=== PATIENT | female | born 1970 | race Caucasian/White ===

== ENCOUNTER 2019-06-12 21:18 | Observation (INO) | payer BC ==
[2019-06-12 21:39] LABS: Basophils % 1.1 % (0-1.3); Hematocrit 39.8 % (36.0-45.0); Lymphocytes % 29.1 % (15.3-44.8); MPV 8.8 fL (7.6-11.3)
[2019-06-12 21:42] LABS: Protime INR 0.97
[2019-06-12 21:59] LABS: ALT/SGPT 39 U/L (12-78); AST/SGOT 25 U/L (15-37); Albumin 3.5 g/dL (3.4-5.0); Alkaline Phosphatase 96 U/L (45-117); BUN Blood Urea Nitrogen 15 mg/dL (7-18); Bicarbonate 23 mmol/L (21-32); Bilirubin Direct < 0.1 mg/dL (0-0.2); Bilirubin Total 0.3 mg/dL (0.2-1.0); Glucose Level 136 mg/dL (74-106); Magnesium 2.2 mg/dL (1.8-2.4); NT PRO-BNP 12 pg/mL (<125); Potassium 3.8 mmol/L (3.5-5.1); Protein, Total 7.8 g/dL (6.4-8.2); Sodium Level 143 mmol/L (136-145); Troponin (Emerg Dept Use Only) < 0.02 ng/mL (0.0-0.045)
--- NOTE | 2019-06-12 23:08 | EDPHYS ---
Physician Documentation [facility] Name: Piper Munguia Age: 48 yrs Sex: Female : 1970 Arrival Date: 06/12/2019 Time: 21:20 Bed 17 Private MD: ED Physician Clem Lopez HPI: 06/12 23:03 This 48 yrs old Female presents to ER via EMS with complaints of Chest tw4 Tightness. 23:03 The patient has experienced near-syncope. Onset: The symptoms/episode began/occurred tw4 just prior to arrival. Duration: This was a single episode, that lasted 5 second(s). Context: the episode(s) was witnessed, by a friend. Associated injury: The patient did not suffer any apparent associated injury. Associated signs and symptoms: The patient has no apparent associated signs or symptoms. The patient has not experienced similar symptoms in the past. 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 - Social history:: Smoking status: Patient/guardian denies using tobacco, Patient/guardian denies using alcohol, street drugs. - Ebola Screening: : Patient negative for fever greater than or equal to 101.5 degrees Fahrenheit, and additional compatible Ebola Virus Disease symptoms Patient denies exposure to infectious person Patient denies travel to an Ebola-affected area in the 21 days before illness onset. ROS: 23:03 Neuro: Positive for syncope. tw4 23:03 Constitutional: Negative for fever, chills, and weight loss, Neck: Negative for injury, tw4 pain, and swelling, Respiratory: Negative for shortness of breath, cough, wheezing, and pleuritic chest pain, Abdomen/GI: Negative for abdominal pain, nausea, vomiting, diarrhea, and constipation, Back: Negative for injury and pain, MS/Extremity: Negative for injury and deformity, Skin: Negative for injury, rash, and discoloration. 23:03 Cardiovascular: Positive for chest pain, Negative for edema, orthopnea, palpitations. Exam: 23:03 Constitutional: This is a well developed, well nourished patient who is awake, alert, tw4 and in no acute distress. 23:03 Head/Face: Normocephalic, atraumatic. Eyes: Pupils equal round and reactive to light, tw4 extra-ocular motions intact. Lids and lashes normal. Conjunctiva and sclera are non-icteric and not injected. Cornea within normal limits. Periorbital areas with no swelling, redness, or edema. Chest/axilla: Normal chest wall appearance and motion. Nontender with no deformity. No lesions are appreciated. Cardiovascular: Regular rate and rhythm with a normal S1 and S2. No gallops, murmurs, or rubs. Normal PMI, no JVD. No pulse deficits. Respiratory: Lungs have equal breath sounds bilaterally, clear to auscultation and percussion. No rales, rhonchi or wheezes noted. No increased work of breathing, no retractions or nasal flaring. Abdomen/GI: Soft, non-tender, with normal bowel sounds. No distension or tympany. No guarding or rebound. No evidence of tenderness throughout. Skin: Warm, dry with normal turgor. Normal color with no rashes, no lesions, and no evidence of cellulitis. MS/ Extremity: Pulses equal, no cyanosis. Neurovascular intact. Full, normal range of motion. Neuro: Awake and alert, GCS 15, oriented to person, place, time, and situation. Cranial nerves II-XII grossly intact. Motor strength 5/5 in all extremities. Sensory grossly intact. Cerebellar exam normal. Normal gait. Vital Signs: 21:12 BP 127 / 75; Pulse 108; Resp 20; Temp 97.9; Pulse Ox 100% on R/A; Weight 122.47 kg (R); fc Height 5 ft. 5 in. (165.10 cm) (R); Pain 0/10; 22:05 BP 94 / 55; Pulse 92; Resp 18; Pulse Ox 100% on R/A; ea 22:49 BP 100 / 61; Pulse 90; Resp 18; Pulse Ox 97% on R/A; ea 23:35 BP 117 / 71; Pulse 87; Resp 18; Pulse Ox 100% on R/A; rr5 06/13 00:50 BP 107 / 59; Pulse 84; Resp 17; Pulse Ox 99% ; rr5 01:32 BP 105 / 59; Pulse 82; Resp 17; Temp 98.1; Pulse Ox 99% ; rr5 06/12 21:12 Body Mass Index 44.93 (122.47 kg, 165.10 cm) fc MDM: 06/12 21:25 Patient medically screened. tw4 23:03 Differential Diagnosis: cardiac arrhythmia, idiopathic syncope, pseudo seizure, tw4 transient ischemic attack, vasovagal episode. Data reviewed: vital signs, nurses notes. Data interpreted: Pulse oximetry: Interpretation: normal. Counseling: I had a detailed discussion with the patient and/or guardian regarding: the historical points, exam findings, and any diagnostic results supporting the discharge/admit diagnosis, lab results, radiology results. 06/12 21:26 Order name: Basic Metabolic Panel; Complete Time: 23:01 [facility] 06/12 23:01 Interpretation: Normal except: CL 109; GLUC 136; CRE 1.41; GFR 39. 06/12 21:26 Order name: CBC with Diff; Complete Time: 23:01 [facility] 06/12 23:01 Interpretation: Normal except: MCV 86.4. 06/12 21:26 Order name: LFT's; Complete Time: 23:01 06/12 23:01 Interpretation: Normal except: GLOB 4.3; A/G 0.8. 06/12 21:26 Order name: Magnesium; Complete Time: 23:01 06/12 23:02 Interpretation: Within normal limits: MG 2.2. 06/12 21:26 Order name: NT PRO-BNP; Complete Time: 23:01 [facility] 06/12 23:02 Interpretation: Within normal limits: NT PRO-BNP 12. 06/12 21:26 Order name: PT-INR; Complete Time: 23:01 06/12 23:02 Interpretation: Within normal limits: PT 11.5. 06/12 21:26 Order name: Troponin (emerg Dept Use Only); Complete Time: 23:01 06/12 23:02 Interpretation: Within normal limits: TROPED < 0.02. 06/12 21:26 Order name: XRAY Chest (1 view) 06/12 21:26 Order name: EKG; Complete Time: 21:28 06/12 21:26 Order name: Cardiac monitoring; Complete Time: 21:39 06/12 21:26 Order name: EKG - Nurse/Tech; Complete Time: 21:39 06/12 21:26 Order name: IV Saline Lock; Complete Time: 21:45 06/12 21:26 Order name: CT Chest For PE Angio 06/12 23:26 Order name: CT Head Brain wo Cont 06/12 21:26 Order name: Labs collected and sent; Complete Time: :45 06/12 21:26 Order name: O2 Per Protocol; Complete Time: 21:39 06/12 21:26 Order name: O2 Sat Monitoring; Complete Time: 21:39 tw4 EC:49 Rate is 98 beats/min. Rhythm is regular. QRS [place] is Normal. MN interval is normal. QRS tw4 interval is normal. QT interval is normal. No Q waves. T waves are Normal. No ST changes noted. Clinical impression: Normal ECG. Interpreted by me. Reviewed by me. Administered Medications: No medications were administered Disposition: 06/12/19 23:07 Hospitalization ordered by Parmjit Webber for Observation. Preliminary diagnosis is Syncope and collapse. - Bed requested for Telemetry/MedSurg (observation). - Status is Observation. rr5 - Condition is Stable. - Problem is new. - Symptoms have improved. UTI on Admission? No Signatures: Dispatcher [employer] EDMS Chyna Petersen RN RN Olga Gutierres RN RN fc Wadley, Terrence, MD MD tw4 Carlito Lucas RN RN rr5 Corrections: (The following items were deleted from the chart) 23:05 23:03 Constitutional: Negative for fever, chills, and weight loss, Eyes: Negative for tw4 injury, pain, redness, and discharge, Cardiovascular: Negative for chest pain, palpitations, and edema, Respiratory: Negative for shortness of breath, cough, wheezing, and pleuritic chest pain, Abdomen/GI: Negative for abdominal pain, nausea, vomiting, diarrhea, and constipation, Back: Negative for injury and pain, MS/Extremity: Negative for injury and deformity, Skin: Negative for injury, rash, and discoloration, tw4 06/13 01:06/12 23:07 Hospitalization Ordered by Parmjit Webber MD for Observation. Preliminary mw diagnosis is Syncope and collapse. Bed requested for Telemetry/MedSurg (observation). Status is Observation. Condition is Stable. Problem is new. Symptoms have improved. UTI on Admission? No. tw4 06/13 01:45 :06/12/2019 23:07 Hospitalization Ordered by Parmjit Webber MD for Observation. rr5 Preliminary diagnosis is Syncope and collapse. Bed requested for Telemetry/MedSurg (observation). Status is Observation. Condition is Stable. Problem is new. Symptoms have improved. UTI on Admission? No. mw
--- NOTE | 2019-06-12 23:08 | ER ---
Nurse's Notes [facility] Name: Piper Munguia Age: 48 yrs Sex: Female : 1970 Arrival Date: 06/12/2019 Time: 21:20 Bed 17 Private MD: Diagnosis: Syncope and collapse Presentation: 06/12 21:12 Presenting complaint: EMS states: that pt had chest tightness the got hot and had a fc syncopal episode. Prior to their arrival they were told pt was cold, clammy, pale and unresponsive. Upon their arrival pt was cool, pale, awake, alert and oriented x4. Transition of care: patient was not received from another setting of care. Onset of symptoms was June 12, 2019. Risk Assessment: Do you want to hurt yourself or someone else? Patient reports no desire to harm self or others. Initial Sepsis Screen: Does the patient meet any 2 criteria? HR > 90 bpm. Yes Does the patient have a suspected source of infection? No. Patient's initial sepsis screen is negative. Care prior to arrival: Medication(s) given: Normal saline infusion, 300 ml IV initiated. 20 GA, in the right forearm, Glucose check: 117. 21:12 Method Of Arrival: EMS: [facility] 21:12 Acuity: NIKA 3 Triage Assessment: 21:33 General: Appears in no apparent distress. Behavior is appropriate for age. Pain: ea Complains of pain in chest. Cardiovascular: Patient's skin is warm and dry. 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 - Social history:: Smoking status: Patient/guardian denies using tobacco, Patient/guardian denies using alcohol, street drugs. - Ebola Screening: : Patient negative for fever greater than or equal to 101.5 degrees Fahrenheit, and additional compatible Ebola Virus Disease symptoms Patient denies exposure to infectious person Patient denies travel to an Ebola-affected area in the 21 days before illness onset. Screenin:12 Abuse screen: Denies threats or abuse. Nutritional screening: No deficits noted. fc Tuberculosis screening: No symptoms or risk factors identified. Fall Risk None identified. Assessment: 21:34 General: Appears in no apparent distress. Behavior is calm, cooperative, appropriate ea for age. Pain: Complains of pain in chest Pain does not radiate. Pain began suddenly. Neuro: Level of Consciousness is awake, alert, obeys commands, Oriented to person, place, time, situation. Cardiovascular: Patient's skin is warm and dry. Respiratory: Airway is patent Respiratory effort is even, unlabored, Respiratory pattern is regular, symmetrical. Derm: Skin is pink, warm \T\ dry. 22:06 Reassessment: Patient and/or family updated on plan of care and expected duration. Pain ea level reassessed. Patient is alert, oriented x 3, equal unlabored respirations, skin warm/dry/pink. 22:36 Reassessment: Patient and/or family updated on plan of care and expected duration. Pain ea level reassessed. Patient is alert, oriented x 3, equal unlabored respirations, skin warm/dry/pink. Returned from CT. 23:55 Reassessment: Patient appears in no apparent distress at this time. Patient and/or rr5 family updated on plan of care and expected duration. Pain level reassessed. Patient is alert, oriented x 3, equal unlabored respirations, skin warm/dry/pink. went back from CT of head. no complaints made. 06/13 00:40 Reassessment: Patient appears in no apparent distress at this time. Patient and/or rr5 family updated on plan of care and expected duration. Pain level reassessed. Patient is alert, oriented x 3, equal unlabored respirations, skin warm/dry/pink. Patient denies pain at this time. Patient states feeling better. Patient states symptoms have improved. 00:50 Reassessment: follow up to hospitalist thru phone, awaiting for the in patient orders. rr5 Vital Signs: 06/12 21:12 BP 127 / 75; Pulse 108; Resp 20; Temp 97.9; Pulse Ox 100% on R/A; Weight 122.47 kg (R); fc Height 5 ft. 5 in. (165.10 cm) (R); Pain 0/10; 22:05 BP 94 / 55; Pulse 92; Resp 18; Pulse Ox 100% on R/A; ea 22:49 BP 100 / 61; Pulse 90; Resp 18; Pulse Ox 97% on R/A; ea 23:35 BP 117 / 71; Pulse 87; Resp 18; Pulse Ox 100% on R/A; rr5 06/13 00:50 BP 107 / 59; Pulse 84; Resp 17; Pulse Ox 99% ; rr5 01:32 BP 105 / 59; Pulse 82; Resp 17; Temp 98.1; Pulse Ox 99% ; rr5 06/12 21:12 Body Mass Index 44.93 (122.47 kg, 165.10 cm) fc ED Course: 06/12 21:12 Arm band placed on Patient placed in an exam room, on a stretcher. fc 21:12 Patient has correct armband on for positive identification. Placed in gown. Bed in low fc position. Call light in reach. Side rails up X2. shelter monitor on. Pulse ox on. NIBP on. 21:12 No provider procedures requiring assistance completed. Maintain EMS IV. Dressing fc intact. Good blood return noted. Site clean \T\ dry. Gauge \T\ site: 20 gauge to right forearm. 21:20 Patient arrived in ED. rv 21:25 Triage completed. fc 21:25 Clem Lopez MD is Attending Physician. tw4 21:31 Radiology exam delayed due to lab results not completed at this time. (BUN/Creatinine). mw3 21:33 Vera Pinto, ANGEL is Primary Nurse. ea 21:34 Inserted saline lock: 20 gauge in right antecubital area, using aseptic technique. ea Blood collected. Patient maintains SpO2 saturation greater than 95% on room air. 21:37 XRAY Chest (1 view) In Process Unspecified. EDMS 22:41 CT Chest For PE Angio In Process Unspecified. EDMS 23:07 Parmjit Webber MD is Hospitalizing Provider. tw4 23:53 CT Head Brain wo Cont In Process Unspecified. EDMS 06/13 01:32 Patient admitted, IV remains in place. intact, No redness/swelling at site. rr5 Administered Medications: No medications were administered Outcome: 06/12 23:07 Decision to Hospitalize by Provider. tw4 06/13 01:31 Admitted to Tele accompanied by tech, room 424, with chart, Report called to montserrat rr5 Condition: stable Instructed on the need for admit. 01:45 Patient left the ED. rr5 Signatures: Dispatcher [employer] EDMS Olga Gutierres, RN RN Vera Pinto RN RN Clem Romero MD MD tw4 Margarita Arredondo 3 Josue Broussard, RN RN Carlito Lucas, RN RN rr5
[2019-06-13] MEDS ORDERED: ACETAMINOPHEN 500 MG TAB PO PRN (01:04)
[2019-06-13] MEDS ORDERED: ALPRAZOLAM 0.25 MG TABLET PO PRN (01:04)
[2019-06-13 02:20] VITALS: BMI 47.2
[2019-06-13 06:53] LABS: HDL Cholesterol 31 mg/dL (40-60); LDL Cholesterol, Calculated 50 (<130); Troponin I < 0.02 ng/mL (0.0-0.045)
[2019-06-13] MEDS ORDERED: D50W 25 GM/50 ML SYRINGE IV PRN (07:07)
[2019-06-13] MEDS ORDERED: GLUCAGON 1 MG/VIAL IM PRN (07:07)
--- NOTE | 2019-06-13 07:18 | P.HP ---
Certification for Inpatient Patient admitted to: Observation With expected LOS: <2 Midnights Patient will require the following post-hospital care: None Practitioner: I am a practitioner with admitting privileges, knowledge of patient current condition, hospital course, and medical plan of care. Services: Services provided to patient in accordance with Admission requirements found in Title 42 Section 412.3 of the Code of Federal Regulations Patient History Date of Service: 06/13/19 Reason for admission: Near syncope History of Present Illness: Patient is a 48-year-old female who has a history of hypertension and a questionable prior history of a myocardial infarction. She presents to the hospital after having a syncopal event. She was at a birthday republican when she became lightheaded. She had been outside for 10-15 min. She was taking pictures in around then she started feeling faint. She collapsed but did not lose consciousness according to the family. She came around within a couple of min. When EMS arrived her blood pressure was 70s over 50s. By the time she was brought to the emergency room she was asymptomatic and her blood pressure had improved. At this time, she is feeling much better. She will be admitted to the hospital for further evaluation. She denies any shortness of breath. She did have diaphoresis. Concern for angina equivalent symptoms of this syncope. Patient has numerous risk factors including her prior history of hypertension and a questionable myocardial infarction. She also smokes, but she quit in July. She smoked for 23 years, and she has a 23 pack-year smoking history. She also has a family history of Coronary artery disease with a mother who had heart disease starting at the age of 50. Will get Cardiology evaluation in light of her numerous risk factors. Allergies No Known Allergies Allergy (Unverified 06/13/19 01:21) Home Medications: Allopurinol 100 mg PO DAILY 06/13/19 Irbesartan/Hydrochlorothiazide [Avalide 300-12.5 mg Tablet] 1 tab PO DAILY 6PM 06/13/19 Metformin HCl 1,000 mg PO DAILY 6PM 06/13/19 Simvastatin 10 mg PO DAILY 6PM 06/13/19 - Past Medical/Surgical History Has patient received pneumonia vaccine in the past: No Diabetic: Yes -: NIDDM -: HTN -: HLD -: Gout -: [place] 1990s -: Breast Augmentation -: Tubal Ligation -: C Section -: L foot Sx -: L Cataract Removal - Social History Smoking Status: Current some day smoker Alcohol use: Yes CD- Drugs: No Caffeine use: Yes Place of Residence: Home Review of Systems 10-point ROS is otherwise unremarkable Physical Examination - Vital Signs Temperature: 98.0 F Blood Pressure: 116/72 Pulse: 83 Respirations: 18 Pulse Ox (%): 100 - Physical Exam General: Alert, In no apparent distress, Oriented x3 HEENT: Atraumatic, PERRLA, Mucous membr. moist/pink, EOMI, Sclerae nonicteric Neck: Supple, 2+ carotid pulse no bruit, No LAD, Without JVD or thyroid abnormality Respiratory: Clear to auscultation bilaterally, Normal air movement Cardiovascular: Regular rate/rhythm, Normal S1 S2, No murmurs Gastrointestinal: Normal bowel sounds, Soft and benign, Non-distended, No tenderness Musculoskeletal: No clubbing, No swelling, No tenderness Integumentary: No rashes, Tenderness/swelling Neurological: Normal gait, Normal speech, Normal strength at 5/5 x4 extr, Normal tone, Sensation intact, Cranial nerves 3-12 intact, Normal affect Lymphatics: No axilla or inguinal lymphadenopathy - Studies Laboratory Data (last 24 hrs) 06/12/19 21:30: PT 11.5, INR 0.97 06/12/19 21:30: WBC 10.2, Hgb 13.1, Hct 39.8, Plt Count 332 06/12/19 21:30: Sodium 143, Potassium 3.8, BUN 15, Creatinine 1.41 H, Glucose 136 H, Magnesium 2.2, Total Bilirubin 0.3, AST 25, ALT 39, Alkaline Phosphatase 96 Assessment & Plan - Problems (Diagnosis) (1) Near syncope Current Visit: Yes Status: Acute (2) Coronary artery disease Current Visit: Yes Status: Acute (3) Family history of cardiac disorder in mother Current Visit: Yes Status: Acute (4) Hypotension Current Visit: Yes Status: Acute (5) History of hypertension Current Visit: Yes Status: Acute (6) Anginal equivalent Current Visit: Yes Status: Acute - Plan 1. Serial troponins and EKG 2. Cardiology consultation 3. Patient may need echocardiogram and stress test; await Cardiology recommendations 4. Anti-platelet therapy, anti coagulation, beta-clark, statin, and O2 as needed 5. Monitor on telemetry 6. Lipid profile 7. GI and DVT prophylaxis Discharge Plan: Home Plan to discharge in: 48 Hours - Advance Directives Does patient have a Living Will: No Does patient have a Durable POA for Healthcare: No - Code Status/Comfort Care Code Status Assessed: Yes Code Status: Full Code Critical Care: No Time Spent Managing PTS Care (In Minutes): 40
[2019-06-13] MEDS ORDERED: INSULIN -REGULAR HUMAN 50 UNIT/0.5 ML ML SQ SCH (07:30)
[2019-06-13 07:54] LABS: Thyroid Stimulating Hormone 0.494 uIU/mL (0.360-3.740)
[2019-06-13] MEDS ORDERED: NA CHLORIDE 0.9% 500 ML IV ONE (08:39)
--- NOTE | 2019-06-13 08:54 | RAD REPORT ---
EXAM DESCRIPTION: Terrence Single View06/12/2019 9:37 pm CLINICAL HISTORY: Chest pain FINDINGS: The lungs appear clear of acute infiltrate. The heart is normal size. An opacity overlyin g the inferior heart is shown to represent prominent fat on the CT scan same date IMPRESSION: No acute abnormalities displayed
[2019-06-13] MEDS ORDERED: ENOXAPARIN 40 MG/0.4 ML SQ SCH (09:00)
[2019-06-13] MEDS ORDERED: ASPIRIN EC 81 MG TAB PO SCH (09:00)
[2019-06-13] MEDS ORDERED: ALLOPURINOL 100 MG TAB PO SCH (09:00)
[2019-06-13 10:22] VITALS: BP 97/62; TEMP 97.3
[2019-06-13 10:24] LABS: Potassium 4.1 mmol/L (3.5-5.1)
--- NOTE | 2019-06-13 11:31 | P.DS ---
Admission Date: 06/13/19 Discharge Date: 06/13/19 Primary Care Provider: Dr. Wu Disposition: ROUTINE DISCHARGE Discharge Condition: GOOD Reason for Admission: Near syncope Consultations: Cardiology-Dr. Silverio Procedures: CT head: No acute abnormality noted. CT Chest: No acute abnormality, pulmonary embolism or pneumonia noted. CXR: No acute abnormality noted. Medical Problem List: Presyncope, chest pain and shortness of breath with hypotension secondary to dehydration/medication Acute renal injury secondary to dehydration Hypertension Diabetes mellitus type 2 non-insulin dependent Gout Hyperlipidemia Obesity, BMI 47 with possible underlying obstructive sleep apnea Brief History of Present Illness: 48-year-old female with history of hypertension, diabetes presented to the ER with presyncope. Patient reported lightheadedness. She appeared to have fainted. She collapsed but did not lose consciousness as per family. She came around after couple of min. When EMS arrived blood pressures were in the 70s systolic. In the ER blood pressure improved. Patient was given IV fluids. Patient had some chest pain which shortness of breath. CT head, CT chest unremarkable. Patient was the for further evaluation. Hospital Course: Patient presented with presyncope, chest pain and shortness of breath. Patient was also hypotensive. This is all likely related to dehydration. Patient had been working outside over the last day. Patient has been taking her blood pressure medication. Yesterday patient had presyncope without losing consciousness. Blood pressures were initially low. Patient given IV fluids and admitted for further evaluation. Since that time CT head, CT chest unremarkable. Cardiac enzymes unremarkable. Renal function was compromised due to dehydration but has improved. Patient continued with IV fluids in the hospital. Patient seen and evaluated by Cardiology. Cardiology recommends no further inpatient evaluation. Repeat orthostatics now within normal range. Blood pressure now stable at this time. At discharge she is without any significant chest pain or shortness of breath. Patient back to baseline. At discharge she may continue with her home medication. She is to monitor blood pressures closely. If blood pressure less than 110 systolic she is to hold her blood pressure medication. Recommend to follow up with Cardiology this week to follow up this hospitalization. Cardiology plans for outpatient echocardiogram/ cardiac stress test. Patient with acute renal injury. Creatinine abnormal likely from dehydration. Patient received IV fluids. Repeat lab shows improvement. Encourage oral intake at this time. Recommend to follow up with her PCP this week to repeat lab. Recommend no use of nonsteroidal anti-inflammatories. Future medications may need to be renally dose. Patient with hypertension. Blood pressure now stable at this time. Patient may continue with irbesartan/hydrochlorothiazide 300/12.5 mg daily. As recommended above. Patient to monitor her blood pressures daily. She is to hold her medication if blood pressure less than 110 systolic. Further adjustment in medication can be done by her PCP. Patient with diabetes mellitus type 2 non insulin dependent. This has remained stable. At discharge patient will continue with metformin 1000 mg daily. Recommend to maintain blood sugars less 140 fasting and less than 200 after meals. Further adjustment can be done by her PCP. Patient with hyperlipidemia. At discharge she may continue with her medication Zocor 10 mg daily. Patient with gout. Patient will continue with allopurinol 100 mg daily. Patient with obesity, BMI 47. Patient may have underlying obstructive sleep apnea. Will recommend sleep study to be done as an outpatient. Continue with lifestyle modification education. Vital Signs/Physical Exam: Temp Pulse Resp BP Pulse Ox 97.3 F 76 18 97/62 97 06/13/19 08:00 06/13/19 08:00 06/13/19 08:00 06/13/19 08:00 06/13/19 08:00 General: Alert, In no apparent distress, Oriented x3, Cooperative HEENT: Atraumatic Neck: Supple Respiratory: Clear to auscultation bilaterally, Normal air movement Cardiovascular: Normal pulses, Regular rate/rhythm Gastrointestinal: Normal bowel sounds, Soft and benign, Non-distended, No tenderness, No masses, No rebound, No guarding Musculoskeletal: No erythema, No tenderness, No warmth Integumentary: No tenderness/swelling, No erythema, No warmth, No cyanosis Neurological: Normal speech, Normal strength at 5/5 x4 extr, Normal tone, Normal affect Laboratory Data at Discharge: WBC 10.2 K/uL (4.3-10.9) 06/12/19 21:30 Hgb 13.1 g/dL (12.0-15.0) 06/12/19 21:30 Hct 39.8 % (36.0-45.0) 06/12/19 21:30 Plt Count 332 K/uL (152-406) 06/12/19 21:30 PT 11.5 SECONDS (9.5-12.5) 06/12/19 21:30 INR 0.97 06/12/19 21:30 Sodium 144 mmol/L (136-145) 06/13/19 09:39 Potassium 4.1 mmol/L (3.5-5.1) 06/13/19 09:39 BUN 14 mg/dL (7-18) 06/13/19 09:39 Creatinine 0.97 mg/dL (0.55-1.3) 06/13/19 09:39 Glucose 110 mg/dL (74-106) H 06/13/19 09:39 Magnesium 2.2 mg/dL (1.8-2.4) 06/12/19 21:30 Total Bilirubin 0.3 mg/dL (0.2-1.0) 06/12/19 21:30 AST 25 U/L (15-37) 06/12/19 21:30 ALT 39 U/L (12-78) 06/12/19 21:30 Alkaline Phosphatase 96 U/L (45-117) 06/12/19 21:30 Troponin I < 0.02 ng/mL (0.0-0.045) 06/13/19 06:06 Triglycerides 85 mg/dL (<150) 06/13/19 06:06 Cholesterol 98 mg/dL (<200) 06/13/19 06:06 HDL Cholesterol 31 mg/dL (40-60) L 06/13/19 06:06 Cholesterol/HDL Ratio 3.16 06/13/19 06:06 Home Medications: Allopurinol 100 mg PO DAILY 06/13/19 Irbesartan/Hydrochlorothiazide [Avalide 300-12.5 mg Tablet] 1 tab PO DAILY 6PM 06/13/19 Metformin HCl 1,000 mg PO DAILY 6PM 06/13/19 Simvastatin 10 mg PO DAILY 6PM 06/13/19 Patient Discharge Instructions: 1. Recommend follow up with PCP this week to follow up this hospitalization. 2. Patient presented with presyncope, chest pain and shortness of breath. Patient was also hypotensive. This is all likely related to dehydration. Patient had been working outside over the last day. Patient has been taking her blood pressure medication. Yesterday patient had presyncope without losing consciousness. Blood pressures were initially low. Patient given IV fluids and admitted for further evaluation. Since that time CT head, CT chest unremarkable. Cardiac enzymes unremarkable. Renal function was compromised due to dehydration but has improved. Patient continued with IV fluids in the hospital. Patient seen and evaluated by Cardiology. Cardiology recommends no further inpatient evaluation. Repeat orthostatics now within normal range. Blood pressure now stable at this time. At discharge she is without any significant chest pain or shortness of breath. Patient back to baseline. At discharge she may continue with her home medication. She is to monitor blood pressures closely. If blood pressure less than 110 systolic she is to hold her blood pressure medication. Recommend to follow up with Cardiology this week to follow up this hospitalization. Cardiology plans for outpatient echocardiogram/cardiac stress test. 3. Patient with acute renal injury. Creatinine abnormal likely from dehydration. Patient received IV fluids. Repeat lab shows improvement. Encourage oral intake at this time. Recommend to follow up with her PCP this week to repeat lab. Recommend no use of nonsteroidal anti-inflammatories. Future medications may need to be renally dose. 4. Patient with hypertension. Blood pressure now stable at this time. Patient may continue with irbesartan/ hydrochlorothiazide 300/12.5 mg daily. As recommended above. Patient to monitor her blood pressures daily. She is to hold her medication if blood pressure less than 110 systolic. Further adjustment in medication can be done by her PCP. 5. Patient with diabetes mellitus type 2 non insulin dependent. This has remained stable. At discharge patient will continue with metformin 1000 mg daily. Recommend to maintain blood sugars less 140 fasting and less than 200 after meals. Further adjustment can be done by her PCP. 6. Patient with hyperlipidemia. At discharge she may continue with her medication Zocor 10 mg daily. 7. Patient with gout. Patient will continue with allopurinol 100 mg daily. 8. Patient with obesity, BMI 47. Patient may have underlying obstructive sleep apnea. Will recommend sleep study to be done as an outpatient. Continue with lifestyle modification education. Diet: ADA Activity: Ad kerrie Time spent managing pt's care (in minutes): 55
[2019-06-13] MEDS ORDERED: PNEUMOCOCCAL VACCINE 0.5 ML IMVAC ONE (12:00)
[2019-06-13 12:42] VITALS: O2SAT 96
--- NOTE | 2019-06-13 13:14 | CON ---
Date of Consultation: 06/13/[address] Martin on 06/13/2019. I saw the patient on 06/13/2019. Reason For Consultation: Syncope. History Of Present Illness: Ms. Munguia is a 48-year-old white woman without any previous cardiac histor y. She has a history of hypertension, gout, diabetes, and dyslipidemia. Approximately 2 days ago, s he was working outside on her truck and got very sweaty. The day after while outside, she had an epi sode of presyncope that lasted about few seconds. She denied any chest pain. Denied any nausea or v omiting or diaphoresis. Denied any PND, orthopnea, pedal edema, or palpitations. Few years ago, she was told she had a very mild heart attack, but never had a heart catheterization or any workup at at point. She has never really had a stress test. She does have a family history of heart disease. So far, her EKG is nonspecific. The rest of the blood work showed a creatinine of 1.41. Past Medical History: As stated above. Allergies: NONE. Review of Systems: Negative. Social History: Negative for tobacco or alcohol use. Family History: Positive for heart disease. Medications: At home include allopurinol, Avalide, metformin, and Zocor. Physical Examination: General: She weighed 284 pounds, but the vital signs were stable. She was afebrile. She was in a s inus rhythm. HEENT: Negative. Neck: Supple without any bruit. Chest: Clear to auscultation and percussion. Cardiac: Revealed a regular rhythm and rate. No murmurs, gallops, or rubs. Abdomen: Benign. Extremities: Revealed no clubbing, cyanosis, or edema. Diagnostic Data: As stated earlier. Impression And Plan: 1.Syncope secondary to orthostatic hypotension, secondary to dehydration. 2.Elevated creatinine consistent with dehydration. 3.Obesity. 4.Gout. 5.Diabetes. 6.Hypertension. 7.Dyslipidemia. I believe Ms. Munguia can go home, stay well hydrated. Continue her medical regimen. I would make arran gements for her to have an outpatient stress test with [facility] and I would have repeat her creatin ine in the near future. Case was discussed with Dr. Martin. SHAILA/PASTOR Voice ID: [id number] Report ID: [id number]
--- NOTE | 2019-06-13 16:57 | EKG ---
Test Date: 2019-06-12 Test Time: 21:18:14 Complaint Specialist: SHIRLEY MEASUREMENT RESULTS: Intervals: Rate: 98 MN: 152 QRSD: 76 QT: 362 QTc: 462 Adel: P: 10 MN: 152 QRS: 49 T: 46 INTERPRETIVE STATEMENTS: Normal sinus rhythm Normal ECG Compared to ECG 02/10/2013 13:42:40 No significant changes Electronically Signed On 06-13-19 16:56:01 CDT by Dylon Silverio
[2019-06-13] MEDS ORDERED: HOME MED 1 EA UNK (Simvastatin [Simvastatin] 10 MG) PO SCH (18:00)
[2019-06-13] MEDS ORDERED: ATORVASTATIN 10 MG TAB PO SCH (21:00)
--- NOTE | 2019-06-14 09:43 | RAD REPORT ---
EXAM DESCRIPTION: CT - Head Brain Wo Cont - 06/13/2019 12:54 am CLINICAL HISTORY: The patient is 48 years old and is Female; SYNCOPE TECHNIQUE: Axial computed tomography images of the head/brain without intravenous contrast. Sagitt al and coronal reformatted images were created and reviewed. This CT exam was performed using one o r more of the following dose reduction techniques: automated exposure control, adjustment of the mA and/or kV according to patient size, and/or use of iterative reconstruction technique. COMPARISON: No relevant prior studies available. FINDINGS: BRAIN: Unremarkable. The turcios-white matter differentiation is preserved . No hemorrhag e. No significant white matter disease. No edema. No extra-axial fluid collections. VENTRICLES: Unremarkable. No ventriculomegaly. BONES/JOINTS: No acute fracture. SOFT TISSUES: Unremarkable. SINUSES: Unremarkable as visualized. No acute sinusitis. MASTOID AIR CELLS: Unremarkable as visualized. No mastoid effusion. IMPRESSION: No acute intracranial findings. Electronically signed by: Wanda Pham MD 06/13/2019 12:02 AM CDT Due to temporary technical issues with the PACS/Fluency reporting system, reports are being signed by the in house radiologist as a courtesy to ensure prompt reporting. The interpreting radiologist is f ully responsible for the content of the report.
--- NOTE | 2019-06-14 09:44 | RAD REPORT ---
EXAM DESCRIPTION: CT - Chest For Pe Angio - 06/12/2019 10:40 pm CLINICAL HISTORY: Shortness of breath. COMPARISON: None. TECHNIQUE: CT angiogram of the chest with IV contrast. 3-D MIP images were obtained in coronal and s agittal reconstructions. This exam was performed according to our departmental dose-optimization prog bishop, which includes automated exposure control, adjustment of the mA and/or kV according to patient s ize and/or use of iterative reconstruction technique. FINDINGS: No filling defects are identified in the pulmonary trunk, main left and right pulmonary ar teries, or the segmental branches. No mediastinal or hilar adenopathy. The heart size is normal without pericardial effusion. The thorac ic aorta is normal caliber. No consolidation, pleural effusion, or pneumothorax is identified. The visualized upper abdomen demonstrates no acute findings. No acute osseous findings are seen. IMPRESSION: No acute pulmonary embolism. Electronically signed by: Marlon Sutton MD 06/12/2019 10:48 PM CDT Due to temporary technical issues with the PACS/Fluency reporting system, reports are being signed by the in house radiologist as a courtesy to ensure prompt reporting. The interpreting radiologist is f ully responsible for the content of the report.
== END 2019-06-13 12:40 | disposition home or self-care (01) ==
LOC: ER 21:18 → ERHOLD 06-13 01:04 → 4TH 06-13 01:34
PROVIDERS: ADMIT Hospitalist; ATTEND Hospitalist
DX: R55 Syncope and collapse (principal); R07.9 Chest pain, unspecified; R06.02 Shortness of breath; N17.9 Acute kidney failure, unspecified; I95.9 Hypotension, unspecified; E86.0 Dehydration; E11.9 Type 2 diabetes mellitus without complications; E78.5 Hyperlipidemia, unspecified; M10.9 Gout, unspecified; E66.9 Obesity, unspecified; Z68.42 Body mass index [BMI] 45.0-49.9, adult; I10 Essential (primary) hypertension
CPT/HCPCS: 36415; 70450; 71045; 71275; 80048; 80061; 80076; 82962; 83036; 83735; 83880; 84439; 84443; 84484; 85025; 85610; 93005; 99285; G0378; J1650; Q9967